=== PATIENT | male | born 1945 | race Caucasian/White ===

== ENCOUNTER → 2016-08-10 | Outpatient (CLI) | payer MEDICARE, OTHER ==
--- NOTE | 2016-08-10 11:45 | DI ---
EXAM: CHEST, PA LATERAL COMPARISON: None available. HISTORY: ITS.REASON: R06.02 SHORTNESS OF BREATH . FINDINGS:The lungs are hyperinflated with increased AP diameter and flattening of the diaphragms. This can be seen with chronic emphysematous changes. The cardiomediastinal silhouette is within limits of normal. The pulmonary vascularity appears unremarkable. The lungs are clear. There is no evidence for pleural effusion. There is no evidence for a pneumothorax. No osseous abnormalities are identified. IMPRESSION: No acute process identified. LOCATION OF DICTATION: [facility] [place]
== END ==
LOC: IMA 10:16
PROVIDERS: ATTEND Internal Medicine Cardiovascular Disease
DX: R06.02 Shortness of breath (principal)

== ENCOUNTER 2016-10-01 13:50 | Outpatient (CLI) | payer MEDICARE, OTHER ==
[2016-10-01] VITALS (16 sets, daily range): BP systolic 88–176; BP diastolic 52–95; PULSE 58–96; RESP 11–27; TEMP 97.6–97.8; O2SAT 93–99; Ht 172.7 cm; Wt 79.4 kg
[~2016-10-01] VITALS: Ht 172.7 cm; Wt 79.4 kg
[~2016-10-01 13:50] MED LIST: ASPI-557 PO; MELA1TAB21 PO; METF500T7 PO; METH5TAB6 PO; MULT-933 PO; NORMAL SALINE 1,000 ML IV SCH; RIVA20TA PO; SALINE FLUSH 10ml SYRINGE IVF PRN; UBID100C29 PO
--- NOTE | 2016-10-01 14:05 | NUR ---
ADMISSION Patient arrived at 1400 in preparation for heart cath procedure. Ambulates to room with steady gait, accompanied by his .
[2016-10-01] MEDS ORDERED: RED600CA6 PO (14:11)
[2016-10-01] MEDS ORDERED: ASPI-914 PO (14:27)
[2016-10-01] MEDS ORDERED: MAGN64TA9 PO (14:27)
--- NOTE | 2016-10-01 14:30 | NUR ---
Cardiac Cath teaching Pt arrived to floor and seemed anxious about procedure. This RN sat down and talked extensively with and patient about the procedure. It was explained to them what the doctor is looking for, regarding possible heart blockages, what happens if he doesn't have an intervention, what happens if he does, and what happens if he has a fully blocked artery. Pt and verbalized understanding. Pt states not having any questions at this time. Will continue to monitor.
[2016-10-01 14:50] LABS: BASOPHILS % (AUTO) 0.3 % (0-2); EOSINOPHILS # (AUTO) 0.2 T/MM3 (0-0.5); EOSINOPHILS % (AUTO) 3.6 % (0-4); HCT - HEMATOCRIT 41.8 % (41-53); HGB - HEMOGLOBIN 14.6 GM/DL (13.5-17.5); IMMATURE GRANULOCYTE # (AUTO) 0.01 T/MM3 (0.00-0.03); IMMATURE GRANULOCYTE % (AUTO) 0.2 % (0.0-0.5); LYMPHOCYTES # (AUTO) 1.6 T/MM3 (1-4.8); LYMPHOCYTES % (AUTO) 23.7 % (23-45); MEAN CORPUSCULAR HGB 30.8 UUG (26-34); MEAN CORPUSCULAR HGB CONC(MCHC 34.9 GM/DL (31-37); MEAN CORPUSCULAR VOLUME 88.2 UM3 (80-100); MONOCYTES # (AUTO) 0.5 T/MM3 (0-0.8); MONOCYTES % (AUTO) 7.1 % (0-9.0); NEUTROPHILS #(AUTO)-ABSOLUTE 4.3 T/MM3 (1.8-7.7); NEUTROPHILS % (AUTO) 65.1 % (33-66); RED BLOOD COUNT 4.74 M/MM3 (4.50-5.90); WBC - WHITE BLOOD COUNT 6.6 T/MM3 (4.5-11.0)
[2016-10-01 15:01] LABS: ANION GAP 15 MEQ/L (5-15); BUN/CREATININE RATIO 18 RATIO (6-26); CHLORIDE 107 MEQ/L (98-107); CO2 - CARBON DIOXIDE 22 MEQ/L (22-30); CREATININE 1.1 MG/DL (0.8-1.5); GLOMERULAR FILTRATION RATE 66; GLUCOSE 144 MG/DL (75-110); POTASSIUM 4.2 MEQ/L (3.6-5); SODIUM 144 MEQ/L (134-144)
[2016-10-01] MEDS ORDERED: FENTANYL 100mcg/2ml INJECTION ONE (15:16)
[2016-10-01] MEDS ORDERED: NITROGLYCERIN 50mg/10ml INJECTION IV ONE (15:17)
[2016-10-01] MEDS ORDERED: MIDAZOLAM 2mg/2ml INJECTION ONE ×2 (15:17→15:35)
[2016-10-01] MEDS ORDERED: VERAPAMIL 5mg/2ml INJECTION IV ONE (15:17)
[2016-10-01] MEDS ORDERED: LIDOCAINE 1% (10mg/ml) 30ml SDV ONE (15:18)
[2016-10-01] MEDS ORDERED: HEPARIN 1,000units in NS 500ml BAG IV ONE (15:18)
--- NOTE | 2016-10-01 15:18 | NUR ---
TO ELEVATOR CONDUCTOR Patient transferred to label folder per cart. Nursing notes moderate anxiety and reports this to label folder staff
[2016-10-01] MEDS ORDERED: DILTIAZEM 25mg/5ml INJECTION IV ONE (15:42)
[2016-10-01] MEDS ORDERED: MELA10TA2 PO (15:46)
--- NOTE | 2016-10-01 15:48 | NUR ---
REPORT Report called by cath lab radiology technician staff. Cath was clean. Contrast count 105. Patient has TR band to right wrist with 12 ml air. Diltiazem 15 mg was given in procedure.
--- NOTE | 2016-10-01 15:56 | NUR ---
RETURN Returns from [facility] laboratory. Awake and talkative. Transfers self to bed avoiding pressure on the right wrist.
[2016-10-01] MEDS ORDERED: HYDROCODONE/APAP 5 mg/325 mg TABLET PO PRN (16:00)
[2016-10-01] MEDS ORDERED: LORAZEPAM 2 MG/ML INJECTION IV PRN (16:00)
[2016-10-01] MEDS ORDERED: LORAZEPAM 0.5 MG TABLET PO PRN (16:00)
[2016-10-01] MEDS ORDERED: MAG-AL + SIM LIQUID 30 ML UDC PO PRN (16:00)
[2016-10-01] MEDS ORDERED: MILK OF MAGNESIA 30 ML SUSP PO PRN (16:00)
[2016-10-01] MEDS ORDERED: ATROPINE 1 MG/ML VIAL IV PRN (16:00)
[2016-10-01] MEDS ORDERED: METOCLOPRAMIDE 10mg/2ml INJECTION IV PRN (16:00)
[2016-10-01] MEDS ORDERED: BISACODYL 5 MG E.C. TABLET PO PRN (16:00)
[2016-10-01] MEDS ORDERED: NITROGLYCERIN 0.4 MG SUBLINGUAL TABLET SL PRN (16:00)
[2016-10-01] MEDS ORDERED: PROMETHAZINE 25 MG INJECTION IV PRN (16:00)
[2016-10-01] MEDS ORDERED: ACETAMINOPHEN 325 MG TABLET PO PRN (16:00)
[2016-10-01] MEDS ORDERED: ONDANSETRON 4mg/2ml INJECTION IV PRN (16:00)
[2016-10-01] MEDS ORDERED: BISACODYL 10 MG SUPPOSITORY RECTALLY PRN (16:00)
[2016-10-01] MEDS ORDERED: MORPHINE SULFATE 4 MG SYRINGE IV PRN ×2 (16:00)
--- NOTE | 2016-10-01 16:45 | NUR ---
CM THIS WORKER MET WITH PT ON THIS DATE. ALSO PRESENT WAS . THIS WORKER INTRODUCED SELF AND ROLE OF CASE MANAGEMENT. PT REQUESTED THAT RECORDS OF LAB BE SENT TO DR. DORAN'S OFFICE FOR FOLLOW UP. PT DENIED NEEDS AT THIS TIME. PT IS PLANNING TO RETURN HOME AT TIME OF DISCHARGE. PT WAS GIVEN CONTACT INFORMATION FOR THIS WORKER AND ENCOURAGED TO CONTACT WITH ANY NEEDS.
--- NOTE | 2016-10-01 19:23 | CVPROF ---
CARDIAC CATHETERIZATION DATE OF PROCEDURE October 01, 2016 The patient is a pleasant 71-year-old gentleman with abnormal stress test and was referred for further evaluation by cardiac catheterization and possible intervention. Informed consent was obtained after explaining the procedure and the potential risks to the patient who agreed to proceed with the procedure. PROCEDURE 1. Left heart catheterization. 2. Coronary angiography. 3. Left ventriculography. TECHNIQUE He was prepped and draped in the usual sterile techniques. 1% lidocaine was used for local anesthesia. Using modified Seldinger technique, arterial access was obtained into the right radial artery with placement of a 6-[place] arterial sheath. Conscious sedation was performed using Versed and fentanyl. 3000 units of heparin, 300 mcg of nitroglycerin, and 2.5 mg of verapamil were given through the arterial sheath. LEFT VENTRICULOGRAPHY Left ventriculography in single-plane RENTERIA shallow projection showed normal LV systolic function with ejection fraction of about 65% with no mitral regurgitation or gradient across the aortic valve. LVEDP was about 2. CORONARY ANGIOGRAPHY Left main was free of significant lesions. The left anterior descending artery had minor irregularities with no significant lesions. It was a medium-caliber vessel. Diagonals were free of significant lesions. Left circumflex artery had minor irregularities including obtuse marginal. There were no significant lesions in circumflex or marginals. Right coronary artery was dominant with minor irregularities with no significant lesions. The patient tolerated the procedure well with no complications. IMPRESSION 1. Mild coronary artery disease as described above. 2. Normal LV systolic function with ejection fraction of about 65%. PLAN Medical management. WAYNE
--- NOTE | 2016-10-01 19:42 | NUR ---
STATUS Patient has recovered from his heart cath and met discharge criteria upon getting up to walk and void. Atrial fibrillation has been chronic for this patient and he was given Diltiazem 15 mg IV in the manager cath lab. Subsequently he did have some brief periods of bradycardia this afternoon that have decreased in frequency as time has passed. Heart rate was noted as low as 38 beats per minute at one point, and often in the low 40's. He would then bounce back up to the low 60's. This was discussed with Kathleen Perez APRN this afternoon who recommended that patient could be discharged home later today if he was asymptomatic for the bradycardia and able to be up and ambulate without onset of symptoms. Other than being fatigued, he has been completely asymptomatic and was able to walk in the hallway to the unit entrance and back without difficulty. As of 1899 air has been completely removed from the TR band and the site assessment remains WNL. Report has been given to DION RN who will complete the discharge teaching and dismiss the patient home in care of this . This RN did page Willow Shankar APRN developmental electronics assembler for Dr Villeda, requesting information on when the patient should restart Xarelto. Willow recommended that he could restart this medication tomorrow or even later this evening, and that it needs to be taken with food. Patient verbalizes understanding of this information and that he needs to wait to restart his Metformin on , in the meanttime following a carb controlled diet.
--- NOTE | 2016-10-01 20:20 | NUR ---
Discharge Patient has no pain, nausea, or SOA. VSS. HR 60s with Afib. Discharge instructions given and patient verbalized understanding and had no questions at this time. Patient left through the ED entrance by wheelchair.
--- NOTE | 2016-10-02 11:23 | NUR ---
FOLLOW UP FAXED LAB RESULTS REQUESTED TO DR DORAN AT [phone]
== END 2016-10-01 20:20 | disposition home or self-care (01) ==
LOC: CATH 13:50 → SRG 13:52 → CATH 20:20
PROVIDERS: ATTEND Internal Medicine Cardiovascular Disease
DX: I25.10 Atherosclerotic heart disease of native coronary artery without angina pectoris (principal); R94.39 Abnormal result of other cardiovascular function study; R06.02 Shortness of breath; I48.0 Paroxysmal atrial fibrillation; E11.9 Type 2 diabetes mellitus without complications; E78.2 Mixed hyperlipidemia; E05.80 Other thyrotoxicosis without thyrotoxic crisis or storm; F17.210 Nicotine dependence, cigarettes, uncomplicated; Z82.49 Family history of ischemic heart disease and other diseases of the circulatory system; Z79.899 Other long term (current) drug therapy; Z79.84 Long term (current) use of oral hypoglycemic drugs; Z79.02 Long term (current) use of antithrombotics/antiplatelets
CPT/HCPCS: 36415; 80048; 85025; 93005; 93458; C1893; J1644; J2250; J3010; J3490; J7030; Q9967